=== PATIENT | female | born 1985 | race African-American/Black ===

== ENCOUNTER 2020-03-01 18:16 | Emergency (ER) | payer MEDICAID ==
[~2020-03-01] VITALS: Ht 175.3 cm; Wt 88.0 kg
[2020-03-01 18:21] VITALS: Ht 175.3 cm; Wt 88.0 kg
[2020-03-01 19:43] LABS: PLATELET COUNT 204 x10^3mcL (130-400)
[2020-03-01 19:48] LABS: CARBON DIOXIDE 28.9 mmol/L (21-32); CHLORIDE SERUM 104 mmol/L (98-107); CREATININE SERUM 0.9 mg/dL (0.6-1.0); GFR1 > 60 mL/min; GLUCOSE SERUM 84 mg/dL (74-106); POTASSIUM SERUM 3.7 mmol/L (3.5-5.1); RED CELL DISTRIBUTION WIDTH 15.3 % (11.5-14.5); SODIUM SERUM 139 mmol/L (136-145)
[2020-03-01 19:53] LABS: ALBUMIN 3.4 g/dL (3.4-5.0); ALKALINE PHOSPHATASE 72 U/L (46-116); ALT/SGPT 46 U/L (14-59); AMYLASE 49 U/L (25-115); AST/SGOT 88 U/L (15-37); BILIRUBIN TOTAL 0.2 mg/dL (0.20-1.00); LIPASE 138 IU/L (73-393); TOTAL PROTEIN, SERUM 7.5 g/dL (6.4-8.2)
[2020-03-02 00:35] VITALS: BP 136/93
== END 2020-03-02 00:35 | disposition home or self-care (01) ==
LOC: ED 18:16
PROVIDERS: Emergency Medicine
DX: N76.0 Acute vaginitis (principal); K29.70 Gastritis, unspecified, without bleeding; R07.89 Other chest pain
CPT/HCPCS: 87491; 87591; 99406; J0696; J2405

== ENCOUNTER 2020-03-07 19:50 | Emergency (ER) | payer MEDICAID ==
[~2020-03-07] VITALS: Ht 172.7 cm; Wt 86.6 kg
[2020-03-07 19:56] VITALS: Ht 172.7 cm; Wt 86.6 kg
[2020-03-07 20:47] LABS: BASOPHIL % 1.3 % (0-2); PLATELET COUNT 220 x10^3mcL (130-400)
[2020-03-07 20:48] LABS: RED CELL DISTRIBUTION WIDTH 15.6 % (11.5-14.5)
[2020-03-07 20:57] LABS: CARBON DIOXIDE 26.8 mmol/L (21-32); CHLORIDE SERUM 111 mmol/L (98-107); GFR1 > 60 mL/min; GLUCOSE SERUM 80 mg/dL (74-106); POTASSIUM SERUM 3.8 mmol/L (3.5-5.1); SODIUM SERUM 141 mmol/L (136-145)
[2020-03-07 21:01] LABS: ALBUMIN 3.5 g/dL (3.4-5.0); ALKALINE PHOSPHATASE 72 U/L (46-116); ALT/SGPT 40 U/L (14-59); AST/SGOT 61 U/L (15-37); BILIRUBIN TOTAL 0.2 mg/dL (0.20-1.00); LIPASE 131 IU/L (73-393); TOTAL PROTEIN, SERUM 7.7 g/dL (6.4-8.2)
[2020-03-07 21:51] VITALS: BP 109/73
== END 2020-03-07 21:51 | disposition home or self-care (01) ==
LOC: ED 19:50
PROVIDERS: Emergency Medicine
DX: K29.00 Acute gastritis without bleeding (principal); Z86.19 Personal history of other infectious and parasitic diseases
CPT/HCPCS: Q0162